=== PATIENT | female | born 1990 | race Hispanic/Latino ===

== ENCOUNTER 2019-10-23 13:45 | Emergency (ER) | payer OTHER ==
[~2019-10-23] VITALS: Ht 167.6 cm; Wt 75.0 kg
== END 2019-10-23 18:02 | disposition home or self-care (01) ==
LOC: ED 13:45
DX: O20.0 Threatened abortion (principal); Z3A.01 Less than 8 weeks gestation of pregnancy
CPT/HCPCS: 76801; 76817; 80048; 84702; 85025; 87210; 87491; 87591; 99284-25

== ENCOUNTER 2020-10-09 02:10 | Inpatient (IN) | payer OTHER ==
[~2020-10-09] VITALS: Ht 167.6 cm; Wt 92.5 kg
--- NOTE | 2020-10-09 04:45 | NUR ---
[facility] RAPID COVID TEST DONE PER ORDER. COVID TEST COLLECTED FROM BOTH NARES W/O ISSUE. PT TOLERATED TX WELL.
--- NOTE | 2020-10-09 12:03 | PR ---
[facility] [address] [facility] [place], [place] [address] Signed Progress Notes IP Datetime Report Generated by CPN: 10/09/2020 12:03 PROGRESS NOTES: [id number] Impression: Reassuring Heart Rate Other Impressions: Slow Progress Plan: Augmentation Other Plans: Piitocin VITAL SIGNS: [id number] Vital Signs: Reviewed; Within Normal Limits EXAM: [id number] Dilatation: 0.5 Effacement: 70 Station: -3 Contractions: rare MEMBRANES: [id number] Membranes Status: Ruptured ROM Note: plan to do amniosure, leakage of clear fluid continues Comments: Still only rare contraction; will start Pitocin augmentation. Discussed with patient FETUS A: [id number] FHR Baseline: 130 Variability: Moderate 6-25bpm Accelerations: 15X15 Presentation: Vertex FETUS B: [id number] Signing Physician: Perez Jacob MD Copies: ~ *Electronically Signed* 10/09/20 1203 PEREZ JACOB MD PATIENT NAME: RODRIGUEZ DAVELETTY REYES PROGRESS NOTE DATE OF : 88 PHYSICIAN: PEREZ JACOB MD RPT #: [id number] REPORT IS CONFIDENTIAL AND NOT TO BE RELEASED WITHOUT AUTHORIZATION
--- NOTE | 2020-10-09 16:30 | PR ---
[facility] [address] [facility] [place], [place] [address] Signed Progress Notes IP Datetime Report Generated by CPN: 10/09/2020 16:30 PROGRESS NOTES: [id number] Impression: Normal Progression of Labor Other Impressions: Slow Progress Plan: Continue Present Management; Augmentation; Anticipate Vaginal Delivery Other Plans: Piitocin VITAL SIGNS: [id number] Vital Signs: Reviewed; Within Normal Limits EXAM: [id number] Dilatation: 3.0 Effacement: 75 Station: -2 Contractions: rare MEMBRANES: [id number] Membranes Status: Ruptured ROM Note: plan to do amniosure, leakage of clear fluid continues Comments: Tolerating contractions well, starting to make some progress. FETUS A: [id number] FHR Baseline: 130 Variability: Moderate 6-25bpm Accelerations: 15X15 Presentation: Vertex FETUS B: [id number] Signing Physician: Vicki Jacob MD Copies: ~ *Electronically Signed* 10/09/20 1630 VICKI JACOB MD PATIENT NAME: LETTY FERMIN PROGRESS NOTE DATE OF : 88 PHYSICIAN: VICKI JACOB MD RPT #: [id number] REPORT IS CONFIDENTIAL AND NOT TO BE RELEASED WITHOUT AUTHORIZATION
--- NOTE | 2020-10-09 21:36 | PR ---
[facility] [address] [facility] [place], [place] [address] Signed Progress Notes IP Datetime Report Generated by CPN: 10/09/2020 21:36 PROGRESS NOTES: [id number] Impression: Normal Progression of Labor Other Impressions: Slow Progress Plan: Continue Present Management; Anticipate Vaginal Delivery Other Plans: Piitocin VITAL SIGNS: [id number] Vital Signs: Reviewed; Within Normal Limits EXAM: [id number] Dilatation: 7.0 Effacement: 90 Station: -1 Contractions: rare MEMBRANES: [id number] Membranes Status: Ruptured ROM Note: plan to do amniosure, leakage of clear fluid continues Comments: Comfortable with Epidural, weiwll continue montoring. FETUS A: [id number] FHR Baseline: 130 Variability: Moderate 6-25bpm Accelerations: 15X15 Presentation: Vertex FETUS B: [id number] Signing Physician: Vicki Jacob MD Copies: ~ *Electronically Signed* 10/09/20 213 VICKI JACOB MD PATIENT NAME: LETTY FERMIN PROGRESS NOTE DATE OF : 88 PHYSICIAN: VICKI JACOB MD RPT #: [id number] REPORT IS CONFIDENTIAL AND NOT TO BE RELEASED WITHOUT AUTHORIZATION
--- NOTE | 2020-10-11 12:11 | PR ---
[facility] [address] [place] [address] Signed PP Progress Notes Datetime Report Generated by CPN: 10/11/2020 12:11 SUBJECTIVE: [id number] Pain: Within Normal Limits Nausea/Vomiting: Denies Vital Signs: [id number] Vital Signs: Reviewed; Within Normal Limits Notable Details: PP Hgb/Hct = 8.5/25.3 Abdomen/Uterus: Normal Lochia: Normal Extremities: Normal IMPRESSION/PLAN/PROCEDURES: [id number] Impression: Normal Progression Other Impression: PP Anemia Plan: Discharge Procedures: None Progress Notes: Patient doing well, without complaint and ready to go home. Discussed anemia and treatment at home. Signing Physician: Vicki Jacob MD Copies: ~ *Electronically Signed* 10/11/20 1211 VICKI JACBO MD PATIENT NAME: LETTY FERMIN PROGRESS NOTE DATE OF : 88 PHYSICIAN: VICKI JACOB MD RPT #: [id number] REPORT IS CONFIDENTIAL AND NOT TO BE RELEASED WITHOUT AUTHORIZATION
== END 2020-10-11 14:10 | disposition home or self-care (01) | DRG 768 ==
LOC: FBCO 02:10 → FBC 02:24 → MS 10-10 15:45 → FBC 10-10 19:30
PROVIDERS: ADMIT General Practice; ATTEND General Practice
PROC: 10E0XZZ Delivery of Products of Conception, External Approach (ICD-10-PCS; principal; 2020-10-09)
PROC: 0DQR0ZZ Repair Anal Sphincter, Open Approach (ICD-10-PCS; 2020-10-09)
PROC: 00HU33Z Insertion of Infusion Device into Spinal Canal, Percutaneous Approach (ICD-10-PCS; 2020-10-09)
PROC: 3E0R3BZ Introduction of Anesthetic Agent into Spinal Canal, Percutaneous Approach (ICD-10-PCS; 2020-10-09)
DX: O42.92 Full-term premature rupture of membranes, unspecified as to length of time between rupture and onset of labor (principal); Z37.0 Single live birth; O70.20 Third degree perineal laceration during delivery, unspecified; O90.81 Anemia of the puerperium; D64.9 Anemia, unspecified; Z20.822 Contact with and (suspected) exposure to COVID-19; Z3A.39 39 weeks gestation of pregnancy; O28.2 Abnormal cytological finding on antenatal screening of mother
CPT/HCPCS: 01960; 36415; 84112; 85027; A9270; C9803; J2590; J2795; J3010; J7121; U0003

== ENCOUNTER 2021-09-30 00:06 | Inpatient (IN) | payer OTHER ==
[~2021-09-30] VITALS: Ht 165.1 cm; Wt 93.4 kg
[~2021-09-30 00:06] MED LIST: ASPIRIN81 MG PO; PRENATAL TABLE1 EAC2 PO
--- NOTE | 2021-09-30 08:31 | PR ---
[facility] [address] [facility] [place], [place] [address] Signed Progress Notes IP Datetime Report Generated by CPN: 09/30/2021 08:31 PROGRESS NOTES: [id number] Impression: Normal Progression of Labor Procedures: Artificial ROM Plan: Continue Present Management; Anticipate Vaginal Delivery VITAL SIGNS: [id number] Vital Signs: Reviewed; Within Normal Limits EXAM: [id number] Dilatation: 5.0 Effacement: 80 Station: -2 Contractions: spacing out MEMBRANES: [id number] Membranes Status: Ruptured Comments: Cervix posterior. -> will try different postions prior to getting Epidural, to help cervix move more anterior. FETUS A: [id number] FHR Baseline: 130 Variability: Moderate 6-25bpm Accelerations: 15X15 Presentation: Vertex FETUS B: [id number] Signing Physician: Vicki Jacob MD Copies: ~ *Electronically Signed* 09/30/21830 VICKI JACOB MD PATIENT NAME: LETTY FERMIN PROGRESS NOTE DATE OF : 88 PHYSICIAN: VICKI JACOB MD RPT #: [id number] REPORT IS CONFIDENTIAL AND NOT TO BE RELEASED WITHOUT AUTHORIZATION
--- NOTE | 2021-09-30 11:23 | PR ---
[facility] [address] [facility] [place], [place] [address] Signed Progress Notes IP Datetime Report Generated by CPN: 09/30/2021 11:23 PROGRESS NOTES: [id number] Impression: Normal Progression of Labor Procedures: Artificial ROM Plan: Continue Present Management; Anticipate Vaginal Delivery VITAL SIGNS: [id number] Vital Signs: Reviewed; Within Normal Limits EXAM: [id number] Dilatation: 8.0 Effacement: 80 Station: -1 Contractions: spacing out MEMBRANES: [id number] Membranes Status: Ruptured Comments: Comfortable with Epidural. Will continue monitoring. FETUS A: [id number] FHR Baseline: 130 Variability: Moderate 6-25bpm Accelerations: 15X15 Presentation: Vertex FETUS B: [id number] Signing Physician: Vicki Jacob MD Copies: ~ *Electronically Signed* 09/30/21 1123 VICKI JACOB MD PATIENT NAME: LETTY FERMIN PROGRESS NOTE DATE OF : 88 PHYSICIAN: VICKI JACOB MD RPT #: [id number] REPORT IS CONFIDENTIAL AND NOT TO BE RELEASED WITHOUT AUTHORIZATION
--- NOTE | 2021-10-01 12:15 | PR ---
[facility] [address] [facility] [place] [address] Signed PP Progress Notes Datetime Report Generated by CPN: 10/01/2021 12:15 SUBJECTIVE: [id number] Pain: Within Normal Limits Nausea/Vomiting: Denies Vital Signs: [id number] Vital Signs: Reviewed; Within Normal Limits Notable Details: PP Hgb/Hct = 10.4/30.7 EXAM: Ongoing Abdomen/Uterus: Normal Lochia: Normal Extremities: Normal IMPRESSION/PLAN/PROCEDURES: [id number] Impression: Normal Progression Plan: Discharge Procedures: None Progress Notes: Doing well, without complaint, ready to go home. Signing Physician: Vicki Jacob MD Copies: ~ *Electronically Signed* 10/01/21 1215 VICKI JACOB MD PATIENT NAME: LETTY FERMIN PROGRESS NOTE DATE OF : 88 PHYSICIAN: VICKI JACOB MD RPT #: [id number] REPORT IS CONFIDENTIAL AND NOT TO BE RELEASED WITHOUT AUTHORIZATION
== END 2021-10-01 14:38 | disposition home or self-care (01) | DRG 807 ==
LOC: FBC 00:06
PROVIDERS: ADMIT General Practice; ATTEND General Practice
PROC: 10E0XZZ Delivery of Products of Conception, External Approach (ICD-10-PCS; principal; 2021-09-30)
PROC: 0KQM0ZZ Repair Perineum Muscle, Open Approach (ICD-10-PCS; 2021-09-30)
PROC: 3E0P7VZ Introduction of Hormone into Female Reproductive, Via Natural or Artificial Opening (ICD-10-PCS; 2021-09-30)
PROC: 10907ZC Drainage of Amniotic Fluid, Therapeutic from Products of Conception, Via Natural or Artificial Opening (ICD-10-PCS; 2021-09-30)
PROC: 3E0R3BZ Introduction of Anesthetic Agent into Spinal Canal, Percutaneous Approach (ICD-10-PCS; 2021-09-30)
PROC: 00HU33Z Insertion of Infusion Device into Spinal Canal, Percutaneous Approach (ICD-10-PCS; 2021-09-30)
DX: O69.81X0 Labor and delivery complicated by cord around neck, without compression, not applicable or unspecified (principal); Z37.0 Single live birth; Z3A.39 39 weeks gestation of pregnancy; O70.1 Second degree perineal laceration during delivery; Z79.899 Other long term (current) drug therapy
CPT/HCPCS: 36415; 85027; 86850; 86900; 86901; A9270; J2405; J2590; J2795